=== PATIENT | male | born 1945 | race Caucasian/White ===

== ENCOUNTER 2024-08-21 06:23 | Day surgery (SDC) | payer OTHER, SELFPAY ==
[2024-08-21 08:16] LABS: Glucose - Point of Care 111 mg/dl (70-99)
== END 2024-08-21 09:54 | disposition home or self-care (01) ==
LOC: GI 06:23
PROVIDERS: ATTENDING PHYSICIAN Internal Medicine
DX: Z12.11 Encounter for screening for malignant neoplasm of colon (principal); D12.3 Benign neoplasm of transverse colon; D12.5 Benign neoplasm of sigmoid colon; K63.5 Polyp of colon; K57.30 Diverticulosis of large intestine without perforation or abscess without bleeding; K64.9 Unspecified hemorrhoids; Z86.0101 Personal history of adenomatous and serrated colon polyps
CPT/HCPCS: 45385; 45380; 88305; 82962

== ENCOUNTER → 2025-07-31 09:11 | Outpatient (REF) | payer OTHER, SELFPAY | LOC: RCS 09:11 | PROVIDERS: ATTENDING PHYSICIAN Nurse Practitioner Family | DX: R93.1 Abnormal findings on diagnostic imaging of heart and coronary circulation (principal); I10 Essential (primary) hypertension | CPT/HCPCS: 93005; 93017; 93350 ==

== ENCOUNTER → 2025-08-03 07:13 | Outpatient (REF) | payer OTHER, SELFPAY | LOC: RCS 07:13 | PROVIDERS: ATTENDING PHYSICIAN Nurse Practitioner Family | DX: R93.1 Abnormal findings on diagnostic imaging of heart and coronary circulation (principal); I10 Essential (primary) hypertension | CPT/HCPCS: 93306 ==